=== PATIENT | female | born 1975 | race Two or more races ===

== ENCOUNTER 2025-02-14 07:49 | Emergency (ER) | payer OTHER ==
[~2025-02-14] VITALS: Ht 157.5 cm; Wt 44.9 kg
[2025-02-14 08:37] LABS: PLATELET COUNT (AUTO) 221 K/uL (150-450); RED BLOOD CELL COUNT(AUTO) 4.81 MIL/uL (4.0-5.2); RED CELL DISTRIBUTION WIDTH 13.2 % (11.5-15.0); WHITE BLOOD COUNT (AUTO) 4.3 K/uL (4.3-11.0)
[2025-02-14 08:42] LABS: CALCIUM, SERUM 9.2 mg/dL (8.5-10.1); CREATININE 0.7 mg/dL (0.6-1.3); SODIUM SERUM 143.0 mmol/L (136-145); UREA NITROGEN, BLOOD 14.0 mg/dL (7-18)
[2025-02-14 08:43] LABS: APPEARANCE,URINE CLEAR (CLEAR); BLOOD, URINE TRACE-INTA Ery/uL (NEGATIVE); LEUKOCYTE ESTERASE ,URINE NEGATIVE (NEGATIVE); NITRITE, URINE NEGATIVE (NEGATIVE); UGLUCOSE NEGATIVE (NEGATIVE)
[2025-02-14 08:46] LABS: ADD URINE CULTURE NO; SQUAMOUS EPITHELIAL CELL,UR Few /HPF (None Seen)
[2025-02-14 08:48] LABS: ASPARTATE AMINOTRANSFERASE 12.0 U/L (15-37); TOTAL PROTEIN, SERUM 7.5 g/dL (6.4-8.2)
[2025-02-14] MEDS ORDERED: IOHEXOL-300 100 ML VIAL IV ONE (09:19)
[2025-02-14] MEDS ORDERED: IV NS 0.9% 250 ML IV ONE (09:19)
[2025-02-14 09:30] LABS: PREGNANCY TEST URINE QUAL NEGATIVE (NEGATIVE)
[2025-02-14 11:23] VITALS: BP 136/69; TEMP 98.2; O2SAT 99
== END 2025-02-14 11:24 | disposition home or self-care (01) ==
LOC: ER 07:56
DX: K29.70 Gastritis, unspecified, without bleeding (principal)
CPT/HCPCS: 99285; 74177; 85025; 80048; 83690; 80076; 84703; 81001; 36415; J7050; Q9967